=== PATIENT | male | born 1990 | race African-American/Black ===

== ENCOUNTER 2017-05-20 22:25 | Emergency (ER) | payer SELFPAY ==
[~2017-05-20] VITALS: Ht 177.8 cm; Wt 68.0 kg
[2017-05-20] MEDS ORDERED: NKM (22:45)
[2017-05-20] MEDS ORDERED: Oseltamivir 75mg cap ORAL STA (23:07)
--- NOTE | 2017-05-20 23:10 | Emergency Room Report ---
History of Present Illness General Chief Complaint: Flu Like Symptoms Source: Patient Present Illness HPI The patient presents with 2 days of upper respiratory symptoms. He has total body aches and a headache. He denied a flu shot this year. He's got some congestion in his nose, sore throat and a mild cough. There's been no wheezing. He's having trouble thinking due to the headache at this time. He has not taken any medication. Headache rated 9/10, constant, some throbbing and more anterior. No neck stiffness. No NVD, chest pain, dyspnea, calf swelling, dysuria. No numbness. No blood thinners. No other co-morbidities. Allergies: Coded Allergies: No Known Allergies (Unverified , 05/20/17) Patient History Past Medical History: see triage record Social History: Reports: smoking Social History Narrative software analyst Reviewed Nursing Documentation: PMH: Agreed, PSxH: Agreed Nursing Documentation-PM Past Medical History: No Stated History Review of Systems All Other Systems: negative except mentioned in HPI Physical Exam Vital Signs Date Time Temp Pulse Resp B/P (MAP) Pulse Ox O2 Delivery O2 Flow Rate FiO2 05/20/17 22:40 99.9 101 16 158/81 96 Room Air General Appearance: well appearing, no apparent distress Head: normocephalic, atraumatic Eyes: bilateral eye normal inspection, bilateral eye PERRL, bilateral eye EOMI ENT: hearing grossly normal, normal voice, moist mucus membranes Neck: full range of motion, supple, no meningismus Respiratory: lungs clear, normal breath sounds, no respiratory distress, speaking full sentences Cardiovascular #1: regular rate, rhythm Cardiovascular #2: 2+ radial (R) Gastrointestinal: normal bowel sounds, non tender, scaphoid Musculoskeletal: back normal, digits/nails normal, gait/station normal, normal range of motion, no calf tenderness Neurologic: alert, oriented x3, trestle mechanic III-XII nml as tested, motor strength/tone normal, DTRs symmetric, sensory intact, cerebellar normal, normal gait, speech normal Psychiatric: mood/affect normal Skin: no rash Medical Decision Making Diagnostic Impression: Primary Impression: Influenza ER Course Patient with URI sy. DDx: influenza, viral syndrome, URI amongst others. Clinical hx c/w influenza. Will treat with Tamiflu and give analgesia. Improved with motrin. Patient stable for outpatient observation and treatment. Last Vital Signs Date Time Temp Pulse Resp B/P (MAP) Pulse Ox O2 Delivery O2 Flow Rate FiO2 05/20/17 23:43 101 16 Room Air 05/20/17 23:43 132/93 05/20/17 23:43 99.9 96 Status: improved Disposition: HOME, SELF-CARE Condition: Improved Scripts Chlorpheniramine Maleate (Chlorpheniramine Maleate) 4 Mg Tablet 4 MG PO Q6HR Y for congestion, #10 TAB Prov: Casey Jett M.D. 05/20/17 Ibuprofen* (MOTRIN*) 600 Mg Tablet 600 MG ORAL Q6H Y for For Pain, #16 TAB Prov: Casey Jett M.D. 05/20/17 Oseltamivir Phosphate (Tamiflu) 75 Mg Capsule 75 MG ORAL TWICE A DAY, #10 CAP Prov: Casey Jett M.D. 05/20/17 Casey Jett M.D. May 20, 2017 23:09
[2017-05-20] MEDS ORDERED: IBUPROFEN600 MG ORAL (23:13)
[2017-05-20] MEDS ORDERED: TAMIFLU75 MG ORAL (23:13)
[2017-05-20] MEDS ORDERED: CHLORPHENIRAMINE4 M1 PO (23:14)
[2017-05-20 23:43] VITALS: BP 132/93
== END 2017-05-20 23:43 | disposition home or self-care (01) ==
LOC: EMR 23:01
DX: J11.1 Influenza due to unidentified influenza virus with other respiratory manifestations (principal)
CPT/HCPCS: 99284